=== PATIENT | female | born 1970 | race Caucasian/White ===

== ENCOUNTER 2018-03-30 10:34 | Emergency (ER) | payer MEDICARE, MEDICAID ==
[~2018-03-30 10:34] MED LIST: Lidocaine 1% 20 ML MDV ONE
[2018-03-30 11:17] LABS: Bacteria/HPF 1+ HPF (None Seen); Other Microscopic Description C&S SET UP; Squamous Epithelial 0-3 HPF (0-3)
[2018-03-30] MEDS ORDERED: cefTRIAXone\\ROCEPHIN 1 GM VIAL ONE (11:28)
[2018-03-30] MEDS ORDERED: Ondansetron ODT 4 MG TAB ONE (11:28)
== END 2018-03-30 11:55 | disposition home or self-care (01) ==
LOC: MADERS 10:34
DX: N12 Tubulo-interstitial nephritis, not specified as acute or chronic (principal); F31.9 Bipolar disorder, unspecified
CPT/HCPCS: 81015; 87077; 87086; 87186; 96372; J0696; J2001; Q0162

== ENCOUNTER 2018-04-05 12:02 | Observation (INO) | payer MEDICARE, MEDICAID ==
[2018-04-05] MEDS ORDERED: Sodium Chloride 0.9% 1,000 ML ONE ×2 (12:30→13:27)
[2018-04-05 13:14] LABS: #Basophils 0.1 thou/uL (0.0-0.2); #Eosinphils 0.3 thou/uL (0.0-0.7); #Lymphocytes 1.9 thou/uL (1.20-3.40); #Monocytes 0.4 thou/uL (0.11-0.59); #Neutrophils 5.7 thou/uL (1.40-6.50); %Basophils 0.7 % (0.0-1.0); %Eosinophils 3.5 % (0.0-10.0); %Lymphocytes 22.2 % (21.0-51.0); %Neutrophils 68.5 % (42.0-75.0); Hemoglobin 11.8 g/dL (12.0-16.0); Mean Corpuscular HGB CONC 32.7 g/dL (32.0-36.0); Mean Corpuscular Hemoglobin 28.6 pg (27.0-31.0); Mean Corpuscular Volume 87.4 fL (78.0-98.0); Mean Platelet Volume 8.7 fL (7.4-10.4); Platelet Count 159 thou/uL (130-400); RBC Distribution Width 12.1 % (11.5-14.5); Red Blood Cell (RBC) Count 4.12 mill/uL (4.20-5.40); White Blood Cell (WBC) Count 8.4 thou/uL (4.8-10.8)
[2018-04-05 13:28] LABS: ALT (SGPT) 88 U/L (8-55); AST (SGOT) 96 U/L (5-34); Albumin 3.8 g/dL (3.5-5.0); Alkaline Phosphatase 49 U/L (40-150); Anion Gap 17 mmol/L (10-20); BUN (Urea Nitrogen) 13 mg/dL (7.0-18.7); Bilirubin, Total 0.3 mg/dL (0.2-1.2); Calc. Creatinine Clearance 0 mL/min (70-130); Calcium 9.2 mg/dL (7.8-10.44); Carbon Dioxide 22 mmol/L (22-29); Chloride 105 mmol/L (98-107); Estimated GFR-MDRD 70; Globulin 2.7 g/dL (2.4-3.5); Glucose 294 mg/dL (70-105); Potassium 4.3 mmol/L (3.5-5.1); Protein, Total 6.5 g/dL (6.0-8.3); Sodium 140 mmol/L (136-145)
[2018-04-05 14:04] LABS: pH (Venous) 7.339 (7.35-7.45)
[2018-04-05 14:05] LABS: Base Excess-Venous -0.7 mmol/L (0 (+/- 2.5)); Bicarbonate (HCO3v) 25.6 mmol/L (22.0-29.0); CO2 Tension (PvCO2) 47.5 mmHg (41.0-51.0); Hemoglobin - Calc 12.4 g/dL (12.0-18.0); O2 Tension (PvO2) 71.9 mmHg (35.0-45.0); Potassium 4.1 mmol/L (3.4-4.7)
[2018-04-05 14:06] LABS: Calcium, Ionized 1.18 mmol/L (1.12-1.32)
[2018-04-05 15:06] LABS: Clarity Slightly Cloudy (Clear)
[2018-04-05 15:07] LABS: Bacteria/HPF 1+ HPF (None Seen); Bilirubin Small (Negative); Blood, Urine Negative (Negative); Glucose, Urine (Dipstick) Negative (Negative); Leukocyte Negative (Negative); Nitrite Negative (Negative); Protein, Urine (Dipstick) 30 mg/dL (Neg-Trace); RBC/HPF 0-3 HPF (0-3); Urobilinogen 0.2 mg/dL (0.2-1.0); WBC/HPF 0-3 HPF (0-3)
[2018-04-05 15:08] LABS: Crystals/HPF 2+ CA OXALATE HPF (Negative)
[2018-04-05 17:23] LABS: Lactic Acid 1.7 mmol/L (0.5-2.2)
[2018-04-05 17:37] VITALS: BMI 35.0
[2018-04-05] MEDS ORDERED: Acetaminophen 325 MG TAB PO PRN (18:04)
[2018-04-05] MEDS ORDERED: Ondansetron ODT 4 MG TAB PO PRN (18:04)
[2018-04-05] MEDS ORDERED: Acetaminophen/Codeine 30-300mg Tablet PO SCH (20:15)
[2018-04-05] MEDS: Famotidine 20 MG TAB PO SCH (20:29)
[2018-04-05] MEDS ORDERED: GABAPENTIN 1200 MG PO SCH (21:00)
[2018-04-05] MEDS ORDERED: Acetaminophen/Codeine 30-300mg Tablet PO PRN ×2 (21:00→21:21)
[2018-04-05] MEDS ORDERED: Simvastatin 5 MG TAB PO SCH (21:00)
[2018-04-05] MEDS ORDERED: Amitriptyline HCl 25 MG TAB PO SCH (21:00)
[2018-04-05] MEDS ORDERED: clonazePAM 0.5 MG TAB PO SCH (21:00)
[2018-04-05] MEDS: hydrALAZINE 25 MG TAB PO SCH (21:35)
[2018-04-05] MEDS: Carvedilol 12.5 MG TAB PO SCH (21:36)
[2018-04-05] MEDS: Cefepime 2 GM in Sodium Chloride 0.9% 100 ML IVPB SCH (21:36)
[2018-04-05] MEDS ORDERED: Gabapentin 400 MG CAP PO SCH (22:00)
--- NOTE | 2018-04-05 22:43 | HP ---
PRIMARY CARE PHYSICIAN: Carmita William MD CHIEF COMPLAINT: Hypotension and acute pyelonephritis. HISTORY OF PRESENT ILLNESS: Ms. Jason is a 47-year-old female, who presented to the emergency room on March 30 due to a possible urinary tract infection. The patient was noted to have urinary tract infection and was started on Levaquin, and urine was sent for culture. On April 03, urine culture came back and it was noted that the patient was resistant to the Levaquin she was started on and the culture grew E. coli, which was susceptible to only Bactrim as an oral medication and every other medication was IV, but the patient is allergic to sulfa drug, so she could not be started on the Bactrim. The patient presented to my office on the to establish care and complained of dysuria, and she was notified of the urine culture and need an IV antibiotic. The patient could not be placed in the hospital as she had social things and she had to take care of her sick mother, so the decision was made for patient to get IV antibiotics twice a day as an outpatient. The patient was getting IV antibiotic today, April 05, when she was noted to be hypotensive. The patient complained of being just very fatigue, unsure if it is due to this. She denies any fever. She does have a history of lupus. She has a history of recurrent nephrolithiasis. She has a history of fibromyalgia, chronic pain syndrome, bipolar, arthritis, and anxiety. The patient states she does not normally get elevated temperatures and the blood pressure is low for her. Decision was made to send patient to the emergency room for rule out of sepsis. The patient received 2 bags of normal saline in the emergency room, and her blood pressure which was initially 85/54, improved and was 140/86. Lab work was done , and the patient was found to have mildly elevated lactic acid of 3.2. Her white count was 8.4, hemoglobin 11.8, and platelets 159. The decision was made to admit the patient on observation overnight and continuation of antibiotics. Upon evaluation of the patient on the floor, she states she feels much better. She states she was hydrating herself at home, but she does have a history of just dry mouth and history of kidney stones. The patient now complains of right-sided groin pain for the past 2 days. She denies any hematuria, but states she had hematuria last week. The patient complains of just feeling a little bit weak, but much better than what she did while she felt in the emergency room. She denies any fever, chest pain, shortness of breath, or palpitations. REVIEW OF SYSTEMS: The patient complains of mild fatigue. The patient complains of right-sided flank pain. Otherwise, negative for fever, night sweats, blurry vision, headaches, dizziness, palpitation, chest pain, shortness of breath, abdominal pain, nausea, vomiting, or diarrhea. PAST MEDICAL HISTORY: Diabetes, type 2; irritable bowel syndrome; fibromyalgia; bipolar; multiple nephrolithiasis; lupus; degenerative joint disease; multiple gastric and antral ulcers; diverticulosis; hypertension; hyperlipidemia; sleep apnea; migraine headaches; and CKD. PAST SURGICAL HISTORY: Lithotripsy x3, back surgery, tubal ligation, toe surgery, appendectomy, hysterectomy, lap cholecystectomy, left foot surgery, cervical spine surgery, and sinus repair surgery. ALLERGIES: SULFA, LASIX, LATEX TAPE, CYCLOBENZAPRINE, AND DONEPEZIL. FAMILY HISTORY: Mother alive with lung cancer, spinal stenosis, thyroid disease , and heart disease. Father alive with diabetes, hypertension, and heart problems. SOCIAL HISTORY: The patient is currently unemployed and taking care of her ill mother. The patient is a former tobacco user, stopped smoking in 2011. Denies any illicit drug use or alcohol use. Code status, the patient is a DNR. MEDICATIONS: 1. Cefepime 2 g b.i.d. x10 days. 2. Tylenol with Codeine one to two tabs every 8 hours. 3. Advil 200 t.i.d. as needed. 4. Amitriptyline 75 at bedtime. 5. Aspirin 325 daily. 6. Carvedilol 25 b.i.d. 7. Fenofibrate 60 daily. 8. Gabapentin 600 two tabs at bedtime. 9. Januvia 100 daily. 10. Lisinopril 40 daily. 11. Metformin 1000 b.i.d. 12. Omeprazole 20 daily. 13. Simvastatin 10 at bedtime. 14. Venlafaxine 150 daily. 15. Victoza once a day. 16. 40 mg once a day. PHYSICAL EXAMINATION: VITAL SIGNS: Temperature 97.7, pulse 85, respirations 18, O2 sat 97% on room air, and blood pressure 151/67. GENERAL: The patient is alert, awake, and oriented x3, sitting up in bed, in no apparent distress. She is cooperative with exam, pleasant demeanor. HEENT: Normocephalic and atraumatic. Pupils are round, reactive, and equal to light. Sclerae nonicteric. Oral mucous membrane, moist. NECK: Supple. No JVD. CARDIOVASCULAR: S1 and S2 normal. No murmurs. LUNGS: Clear to auscultation bilaterally. ABDOMEN: Soft, positive bowel sounds. Right lower abdominal quadrant tenderness. Left CVA tenderness. EXTREMITIES: No edema, clubbing, or cyanosis. NEUROLOGICAL: Alert, awake, and oriented x3. No focal deficits. LABORATORY DATA: WBC 8.4, hemoglobin 11.8, hematocrit 36, and platelets 159. Sodium 140, potassium 4.3, chloride 105, bicarb 22, BUN 13, and creatinine 0.87. Lactic acid, now 1.7 from 3.2. Calcium 9.2. AST 96 and ALT 88. Urine; slightly cloudy, dark yellow, trace ketones, small bili, 4 to 6 squamous epithelial cells , and 1+ bacteria. ASSESSMENT AND PLAN: This is a 47-year-old female with multiple medical problems, who is currently being admitted for acute pyelonephritis, rule out sepsis, which was ruled out in the ER and hypotension. The patient has been admitted for, 1. Acute pyelonephritis. Continue IV cefepime b.i.d. Increase fluid intake. Due to right lower quadrant pain, we will get CT stone protocol. 2. Hypotension. We will monitor blood pressure closely. 3. Generalized weakness, most likely due to chronic disease and her current acute illness. The patient will be observed overnight with high chance of discharge back to home to continue outpatient IV antibiotic therapy to complete a course of 10 days. Job ID: [id number] [facility]
[2018-04-06 05:03] LABS: #Basophils 0.1 thou/uL (0.0-0.2); #Eosinphils 0.3 thou/uL (0.0-0.7); #Lymphocytes 2.2 thou/uL (1.20-3.40); #Monocytes 0.3 thou/uL (0.11-0.59); #Neutrophils 3.5 thou/uL (1.40-6.50); %Eosinophils 4.5 % (0.0-10.0); %Lymphocytes 34.5 % (21.0-51.0); %Monocytes 5.2 % (0.0-10.0); %Neutrophils 54.8 % (42.0-75.0); Hemoglobin 11.4 g/dL (12.0-16.0); Mean Corpuscular HGB CONC 33.2 g/dL (32.0-36.0); Mean Corpuscular Volume 87.3 fL (78.0-98.0); Mean Platelet Volume 8.6 fL (7.4-10.4); Platelet Count 131 thou/uL (130-400); RBC Distribution Width 12.4 % (11.5-14.5); Red Blood Cell (RBC) Count 3.93 mill/uL (4.20-5.40); White Blood Cell (WBC) Count 6.4 thou/uL (4.8-10.8)
[2018-04-06 05:07] LABS: Critical Call w/ Read Back P
[2018-04-06] MEDS ORDERED: metFORMIN 500 MG TAB PO SCH (08:00)
[2018-04-06] MEDS: Cefepime 2 GM in Sodium Chloride 0.9% 100 ML IVPB SCH (08:30)
[2018-04-06] MEDS: Amlodipine 5 MG TAB PO SCH ×2 (08:30→08:32)
[2018-04-06] MEDS: Alogliptin 25 MG TAB PO SCH ×2 (08:30→08:32)
[2018-04-06] MEDS: Carvedilol 12.5 MG TAB PO SCH (08:31)
[2018-04-06] MEDS: hydrALAZINE 25 MG TAB PO SCH ×2 (08:31→08:43)
[2018-04-06] MEDS: Famotidine 20 MG TAB PO SCH (08:32)
[2018-04-06] MEDS ORDERED: Fenofibrate Nanocrystallized 145 MG TAB PO SCH (09:00)
[2018-04-06] MEDS ORDERED: HYDROCODONE BITARTRATE 40 MG PO SCH (09:00)
[2018-04-06] MEDS ORDERED: Multivit, Therapeutic 1 TAB PO SCH (09:00)
[2018-04-06] MEDS ORDERED: Lisinopril 10 MG TAB PO SCH (09:00)
[2018-04-06] MEDS ORDERED: Aspirin Chewable 81 MG TAB PO SCH (09:00)
[2018-04-06] MEDS ORDERED: Venlafaxine HCl XR 150 MG CAP PO SCH (09:00)
--- NOTE | 2018-04-06 10:19 | CT ---
ABDOMEN AND PELVIC CT SCAN WITHOUT IV CONTRAST: History: Right flank pain, pyelonephritis. Comparison: 09-04-12 FINDINGS: The lung bases are clear. Mild fatty changes in the liver. Status post cholecystectomy without ductal dilatation. Pancreas, adrenal glands are unremarkable. Borderline sized spleen. Small nonobstructing left renal calculus. No evidence for acute obstruction. No evidence for large or small bowel obst ruction. Occasional colonic diverticulosis without acute diverticulitis. Post-operative changes of th e lower lumbar spine with pedicle screw placement. IMPRESSION: Tiny nonobstructing left renal calculus. No evidence for acute obstruction. Status post cholecyste ctomy. Mild fatty changes in the liver. No evidence for other significant acute process. POS: [facility]
[2018-04-06 13:39] VITALS: BP 131/71; TEMP 98
[2018-04-06] MEDS ORDERED: Gabapentin 400 MG CAP PO SCH (21:00)
== END 2018-04-06 13:00 | disposition home or self-care (01) ==
LOC: MADERS 12:02 → MADMS 16:56
PROVIDERS: ADMIT Family Medicine; ATTEND Family Medicine
DX: N10 Acute pyelonephritis (principal); I95.9 Hypotension, unspecified; I12.9 Hypertensive chronic kidney disease with stage 1 through stage 4 chronic kidney disease, or unspecified chronic kidney disease; E11.22 Type 2 diabetes mellitus with diabetic chronic kidney disease; N18.9 Chronic kidney disease, unspecified; M32.9 Systemic lupus erythematosus, unspecified; M79.7 Fibromyalgia; G89.4 Chronic pain syndrome; F31.9 Bipolar disorder, unspecified; M19.90 Unspecified osteoarthritis, unspecified site; F41.9 Anxiety disorder, unspecified; K58.9 Irritable bowel syndrome, unspecified; K25.9 Gastric ulcer, unspecified as acute or chronic, without hemorrhage or perforation; K57.90 Diverticulosis of intestine, part unspecified, without perforation or abscess without bleeding; G43.909 Migraine, unspecified, not intractable, without status migrainosus; Z98.51 Tubal ligation status; Z90.49 Acquired absence of other specified parts of digestive tract; Z90.710 Acquired absence of both cervix and uterus; Z98.890 Other specified postprocedural states; Z88.2 Allergy status to sulfonamides; Z91.040 Latex allergy status; Z91.09 Other allergy status, other than to drugs and biological substances; Z88.8 Allergy status to other drugs, medicaments and biological substances; Z87.891 Personal history of nicotine dependence; Z79.2 Long term (current) use of antibiotics; Z79.82 Long term (current) use of aspirin; Z79.84 Long term (current) use of oral hypoglycemic drugs; Z79.899 Other long term (current) drug therapy
CPT/HCPCS: 36415; 80053; 81003; 81015; 82330; 82803; 83605; 85025; 87040; 87086; J0692; J7050

== ENCOUNTER 2018-04-28 14:11 | Outpatient (CLI) | payer MEDICARE, MEDICAID ==
[2018-04-28 14:57] LABS: #Basophils 0.1 thou/uL (0.0-0.2); #Eosinphils 0.5 thou/uL (0.0-0.7); #Lymphocytes 1.9 thou/uL (1.20-3.40); #Monocytes 0.4 thou/uL (0.11-0.59); #Neutrophils 6.1 thou/uL (1.40-6.50); %Basophils 1.2 % (0.0-1.0); %Eosinophils 5.4 % (0.0-10.0); %Monocytes 4.3 % (0.0-10.0); %Neutrophils 68.1 % (42.0-75.0); Hemoglobin 15.3 g/dL (12.0-16.0); Mean Corpuscular HGB CONC 32.4 g/dL (32.0-36.0); Mean Corpuscular Hemoglobin 28.6 pg (27.0-31.0); Mean Corpuscular Volume 88.4 fL (78.0-98.0); Mean Platelet Volume 9.1 fL (7.4-10.4); Platelet Count 228 thou/uL (130-400); RBC Distribution Width 12.1 % (11.5-14.5); Red Blood Cell (RBC) Count 5.33 mill/uL (4.20-5.40)
[2018-04-28 15:14] LABS: ALT (SGPT) 164 U/L (8-55); AST (SGOT) 154 U/L (5-34); Albumin 4.8 g/dL (3.5-5.0); Alkaline Phosphatase 71 U/L (40-150); Anion Gap 17 mmol/L (10-20); BUN (Urea Nitrogen) 14 mg/dL (7.0-18.7); Bilirubin, Total 0.6 mg/dL (0.2-1.2); Calc. Creatinine Clearance 0 mL/min (70-130); Calcium 10.3 mg/dL (7.8-10.44); Carbon Dioxide 26 mmol/L (22-29); Cardiac Risk 5.9 (Less than 4.5); Chloride 97 mmol/L (98-107); Cholesterol 171 mg/dl (< 200 Desired); Estimated GFR-MDRD 71; Globulin 3.4 g/dL (2.4-3.5); Glucose 280 mg/dL (70-105); HDL Cholesterol 29 mg/dL (>60 Neg Risk); LDL Cholesterol, Calculated 95 mg/dL; Potassium 4.3 mmol/L (3.5-5.1); Protein, Total 8.2 g/dL (6.0-8.3); Sodium 136 mmol/L (136-145); Triglycerides 236 mg/dL (Less than 150)
[2018-04-28 22:05] LABS: Hemoglobin A1c 9.9 % (4.0-6.0)
[2018-04-28 22:10] LABS: Creatinine, Urine 203.73 mg/dL (47-110); Microalbumin Urine 6.8 mg/dL (0.5-50.0); Microalbumin/Creat Ratio 33.4 mg/g (Less than 30)
== END 2018-04-28 14:12 ==
LOC: MADLABBHPM 14:11
PROVIDERS: ATTEND Family Medicine
DX: E11.42 Type 2 diabetes mellitus with diabetic polyneuropathy (principal); E11.22 Type 2 diabetes mellitus with diabetic chronic kidney disease; E78.2 Mixed hyperlipidemia; N10 Acute pyelonephritis; N18.9 Chronic kidney disease, unspecified
CPT/HCPCS: 36415; 80053; 80061; 82043; 83036; 85025

== ENCOUNTER 2018-11-14 18:04 | Emergency (ER) | payer MEDICARE, MEDICAID ==
[2018-11-14] MEDS ORDERED: Ketorolac Tromethamine 30 MG/ML VIAL ONE (18:15)
[2018-11-14] MEDS ORDERED: Ondansetron PF 4 MG/2 ML Vial ONE ×2 (18:15→19:47)
[2018-11-14 19:04] LABS: #Basophils 0.1 thou/uL (0.0-0.2); #Eosinphils 0.1 thou/uL (0.0-0.7); #Monocytes 0.3 thou/uL (0.11-0.59); %Basophils 0.6 % (0.0-1.0); %Eosinophils 0.6 % (0.0-10.0); %Lymphocytes 21.4 % (21.0-51.0); %Monocytes 3.2 % (0.0-10.0); %Neutrophils 74.2 % (42.0-75.0); Hemoglobin 12.7 g/dL (12.0-16.0); Mean Corpuscular HGB CONC 33.2 g/dL (32.0-36.0); Mean Corpuscular Volume 84.2 fL (78.0-98.0); Mean Platelet Volume 7.8 fL (7.4-10.4); Platelet Count 149 thou/uL (130-400); RBC Distribution Width 12.2 % (11.5-14.5); Red Blood Cell (RBC) Count 4.54 mill/uL (4.20-5.40); White Blood Cell (WBC) Count 9.5 thou/uL (4.8-10.8)
[2018-11-14 19:20] LABS: ALT (SGPT) 44 U/L (8-55); AST (SGOT) 44 U/L (5-34); Albumin 3.9 g/dL (3.5-5.0); Alkaline Phosphatase 50 U/L (40-150); Anion Gap 18 mmol/L (10-20); BUN (Urea Nitrogen) 8 mg/dL (7.0-18.7); Bilirubin, Total 0.5 mg/dL (0.2-1.2); Calc. Creatinine Clearance 0 mL/min (70-130); Calcium 8.8 mg/dL (7.8-10.44); Carbon Dioxide 20 mmol/L (22-29); Chloride 105 mmol/L (98-107); Estimated GFR-MDRD 84; Globulin 2.8 g/dL (2.4-3.5); Glucose 236 mg/dL (70-105); Potassium 3.4 mmol/L (3.5-5.1); Protein, Total 6.7 g/dL (6.0-8.3); Sodium 140 mmol/L (136-145)
[2018-11-14 19:20] LABS: Bilirubin Negative (Negative); Blood, Urine Negative (Negative); Glucose, Urine (Dipstick) 500 mg/dL (Negative); Leukocyte Negative (Negative); Nitrite Negative (Negative); Protein, Urine (Dipstick) 30 mg/dL (Neg-Trace)
[2018-11-14 19:25] LABS: Clarity Hazy (Clear)
[2018-11-14 19:26] LABS: Bacteria/HPF Rare-Few HPF (None Seen); RBC/HPF 0-3 HPF (0-3)
--- NOTE | 2018-11-14 19:43 | RAD ---
RADIOGRAPH CHEST 1 VIEW: DATE: 11/14/2018 HISTORY: 48-year-old female with generalized weakness FINDINGS: There are no airspace densities, pulmonary edema, pneumothorax, or cardiomegaly. The lateral costophr enic angles are sharp. IMPRESSION: No acute cardiopulmonary findings.
[2018-11-14] MEDS ORDERED: Sodium Chloride 0.9% 100 ML ONE (19:47)
[2018-11-14] MEDS ORDERED: Fentanyl 100 MCG/2 ML VIAL ONE (19:47)
[2018-11-14] MEDS ORDERED: cefTRIAXone\\ROCEPHIN 1 GM VIAL ONE (19:47)
[2018-11-14] MEDS ORDERED: Insulin Regular 300 UNITS/3 ML VIAL ONE (19:59)
== END 2018-11-14 21:00 | disposition home or self-care (01) ==
LOC: MADERS 18:04
DX: N39.0 Urinary tract infection, site not specified (principal); E11.10 Type 2 diabetes mellitus with ketoacidosis without coma; K21.9 Gastro-esophageal reflux disease without esophagitis; E78.5 Hyperlipidemia, unspecified; E78.00 Pure hypercholesterolemia, unspecified; I10 Essential (primary) hypertension; G47.30 Sleep apnea, unspecified; G43.909 Migraine, unspecified, not intractable, without status migrainosus; F31.9 Bipolar disorder, unspecified; Z79.899 Other long term (current) drug therapy; Z79.84 Long term (current) use of oral hypoglycemic drugs; Z79.82 Long term (current) use of aspirin; R11.2 Nausea with vomiting, unspecified
CPT/HCPCS: 36415; 71045; 80053; 81003; 81015; 83605; 84484; 85025; 87040; 93005; 94760; 96365; 96375; 96376; J0696; J1815; J1885; J2405; J3010; J3490

== ENCOUNTER 2019-11-23 12:38 | Emergency (ER) | payer MEDICARE, MEDICAID ==
[2019-11-23 13:41] LABS: Bilirubin Small (Negative); Blood, Urine Negative (Negative); Glucose, Urine (Dipstick) Negative (Negative); Ketone, Urine 15 mg/dL (Negative); Leukocyte Negative (Negative); Nitrite Negative (Negative); Protein, Urine (Dipstick) Negative (Neg-Trace); Urobilinogen 0.2 mg/dL (Less than 2)
[2019-11-23 13:43] LABS: Clarity Hazy (Clear)
[2019-11-23 13:44] LABS: Specific Gravity, Urine 1.033 (1.002-1.036)
[2019-11-23 14:19] LABS: #Basophils 0.1 thou/uL (0.0-0.2); #Eosinphils 0.2 thou/uL (0.0-0.7); #Lymphocytes 2.1 thou/uL (1.20-3.40); #Monocytes 0.4 thou/uL (0.11-0.59); #Neutrophils 4.8 thou/uL (1.40-6.50); %Basophils 1.2 % (0.0-1.0); %Eosinophils 2.1 % (0.0-10.0); %Lymphocytes 27.8 % (21.0-51.0); %Monocytes 5.4 % (0.0-10.0); %Neutrophils 63.5 % (42.0-75.0); Hemoglobin 12.5 g/dL (12.0-16.0); Mean Corpuscular HGB CONC 31.9 g/dL (32.0-36.0); Mean Corpuscular Hemoglobin 29.1 pg (27.0-31.0); Mean Corpuscular Volume 91.4 fL (78.0-98.0); Mean Platelet Volume 7.9 fL (7.4-10.4); Platelet Count 205 thou/uL (130-400); RBC Distribution Width 12.7 % (11.5-14.5); Red Blood Cell (RBC) Count 4.28 mill/uL (4.20-5.40); White Blood Cell (WBC) Count 7.6 thou/uL (4.8-10.8)
[2019-11-23 14:31] LABS: ALT (SGPT) 20 U/L (8-55); AST (SGOT) 22 U/L (5-34); Albumin 3.8 g/dL (3.5-5.0); Alkaline Phosphatase 39 U/L (40-110); Anion Gap 16 mmol/L (10-20); BUN (Urea Nitrogen) 20 mg/dL (7.0-18.7); Bilirubin, Total 0.3 mg/dL (0.2-1.2); Calc. Creatinine Clearance 0 mL/min (70-130); Calcium 9.2 mg/dL (7.8-10.44); Carbon Dioxide 25 mmol/L (22-29); Chloride 104 mmol/L (98-107); Estimated GFR-MDRD 56; Globulin 2.8 g/dL (2.4-3.5); Glucose 110 mg/dL (70-105); Lipase 35 U/L (8-78); Potassium 4.5 mmol/L (3.5-5.1); Protein, Total 6.6 g/dL (6.0-8.3); Sodium 140 mmol/L (136-145)
--- NOTE | 2019-11-23 14:37 | CT ---
CT Abdomen Pelvis WO Con 11/23/2019 1:57 PM HISTORY: Abdominal pain. COMPARISON: Postcontrast CT abdomen and pelvis on 07/31/2019 Technique: Multiple contiguous axial CT images are obtained through the abdomen and pelvis without IV contrast. Coronal reformats are provided. FINDINGS: This examination is limited for the evaluation of solid organs and vascular structures due to the lac k of intravenous contrast. Lower Chest: Minimal atelectasis in the lingula. Lung bases are otherwise clear Abdomen: Liver: Grossly normal non-enhanced CT appearance. Gallbladder: Surgically absent. Pancreas: Grossly normal nonenhanced CT appearance. Spleen: Grossly normal nonenhanced CT appearance. Adrenals: Grossly normal nonenhanced CT appearance. Kidneys: Approximately 2 mm nonobstructing inferior pole right renal calculus. No left renal calculus is seen. There is no hydronephrosis Ureters: No ureteral calculus is seen.. Pelvis: Urinary bladder: Decompressed and not well evaluated. Reproductive Organs: Evidence of hysterectomy. Lymph Nodes: No enlarged lymph nodes. Bowel: Small amount retained fecal material seen throughout the colon. Loops of small bowel are radha l in caliber. Again noted is prominent fat density in the region of the ileocecal valve. Peritoneum: No free fluid, free air, or fluid collection. Retroperitoneum: within normal limits. Vessels: Vascular calcifications in the abdominal aorta and iliac arteries appear. Abdominal Wall: within normal limits. Bones: Postoperative changes related to posterior fusion at the lumbosacral junction. Mild degenerati ve change are seen in the spine. IMPRESSION: 1. Nonobstructing inferior pole right renal calculus. No ureteral calculi are seen bilaterally, and t here is no hydronephrosis. 2. Colonic diverticulosis with small amount retained fecal material seen throughout the colon. 3. Postoperative changes related to cholecystectomy and hysterectomy.
== END 2019-11-23 16:02 | disposition home or self-care (01) ==
LOC: MADERS 12:38
DX: R10.9 Unspecified abdominal pain (principal); K58.9 Irritable bowel syndrome, unspecified; E78.5 Hyperlipidemia, unspecified; E78.00 Pure hypercholesterolemia, unspecified; I10 Essential (primary) hypertension; G47.30 Sleep apnea, unspecified; G43.909 Migraine, unspecified, not intractable, without status migrainosus; K76.0 Fatty (change of) liver, not elsewhere classified; F31.9 Bipolar disorder, unspecified; Z79.899 Other long term (current) drug therapy; Z79.84 Long term (current) use of oral hypoglycemic drugs; Z79.82 Long term (current) use of aspirin
CPT/HCPCS: 36416; 74176; 80053; 81003; 83605; 83690; 85025; 36415-59